=== PATIENT | male | born 2000 | race Caucasian/White ===

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

== ENCOUNTER 2021-01-22 07:37 | Emergency (ER) | payer BC, SELFPAY ==
[2021-01-22 07:38] VITALS: BP 186/100; PULSE 100; RESP 16; TEMP 36; O2SAT 98; BMI 26.4
--- NOTE | 2021-01-22 08:02 | RAD_ITS ---
STUDY: X-RAY - ACUTE ABDOMINAL SERIES REASON FOR EXAM: Male, 20 years old. Pain TECHNIQUE: Single view of the chest. Supine, and erect view(s) of the abdomen were obtained. 5 total views obtained COMPARISON: None. FINDINGS: The lungs are clear and expanded. Normal size heart. Normal mediastinum and ludwin. Normal visualized pulmonary arteries. Normal visualized aortic arch and descending thoracic aorta. There is a non-specific bowel gas pattern. The soft tissue structures of the abdomen and pelvis are unremarkable. Normal visualized osseous structures. RAD/Acute Abdomen Inc Chest IMPRESSION: Normal x-ray examination of the chest, abdomen, and pelvis. Electronically Signed: Marcial Dobbs MD at 9:08 EST , Service support ,
--- NOTE | 2021-01-22 08:03 | ED.VIS.GI ---
HPI HPI - GI History of Present Illness Chief Complaint: Nausea/Vomiting Abdominal Pain/Flank Pain Onset: Today and Hours (6) Context: Gradual Onset Timing: Continuous Quality: Sharp Location: Diffuse Worsened by: Nothing Relieved by: Nothing Nausea/Vomiting/Emesis GI Symptom: Positive for Nausea and Vomiting Onset: Today Quality: Positive for - (Dark blood) Diarrhea/Melena/Hematochezia GI Symptom: Negative for Diarrhea, Melena and Hematochezia Associated Symptoms Associated Symptoms: Negative for Dysuria, Frequency and Hematuria Narrative Narrative: Patient presents with abdominal pain, nausea, and vomiting that began today. Patient states he was drinking alcohol last night. Patient states he has been vomiting for the past 6 hours. Patient states initially it was bile but then it changed to dark blood. Patient admits to some diffuse abdominal pain. Patient describes it as a sharp. Patient states nothing makes it better nothing makes it worse. Patient denies any diarrhea, melena, or hematochezia. Patient denies any dysuria, frequency, or hematuria. PFSH PFSH Medical History no medical history no medical history Home Medications ondansetron 4 mg PO Q8H PRN PRN #10 tab 01/22/21 [Rx Last Taken Unknown] Allergy/AdvReac Type Severity Reaction Status Date / Time No Known Allergies Allergy Verified 01/22/21 07:39 Surgical History no surgical history no surgical history Social History Smoking Status: Former smoker ROS ROS ED Constitutional Constitutional ED: Reports chills and subjective; Denies fever(s) Eyes Eyes: Denies blurry vision or change in vision ENT ENT ED: Denies rhinorrhea or sore throat Cardiovascular Cardiovascular: Denies chest pain or palpitations Respiratory/Chest Respiratory/Chest: Denies cough or dyspnea Gastrointestinal Gastrointestinal: Reports abdominal pain, nausea and vomiting; Denies diarrhea or melena Genitourinary Genitourinary ED: Denies dysuria, hematuria or urinary frequency Musculoskeletal Musculoskeletal: Denies back pain or neck pain Integumentary Denies abscess or rash Neurologic Neurologic: Denies headache(s) or weakness Allergic/Immunologic Allergic/Immunologic ED: Denies mouth swelling or urticaria EXAM Physical Exam Const Vital Signs: 01/22/21 07:38 Temperature 96.8 F L Temperature Source Temporal Pulse Rate 100 Respiratory Rate 16 Blood Pressure 186/100 H Blood Pressure Mean 128 Pulse Ox 98 Oxygen Delivery Method Room Air Positive well nourished and well developed General Appearance ED: well developed HEENT Reports moist mucous membranes Neck supple and no JVD Resp normal respiratory effort and clear to auscultation bilaterally Cardio regular rate, regular rhythm and no murmurs GI normal to inspection, nondistended, normoactive bowel sounds, non-tender and non-distended Auscultation: normoactive bowel sounds Palpation: soft Extremity normal to inspection General Extremety ED: Negative for edema or tenderness General Extremity: Negative for edema Neuro oriented x3, CN's II-XII intact bilaterally and no sensory deficits noted Sensorium / Orientation: alert Motor Exam: strength 5/5 throughout Psych mental status grossly normal Skin no rashes or lesions noted MDM MDM MDM Narrative Medical decision making narrative: Patient was given IV fluids and Zofran. CBC and comprehensive metabolic profile were obtained and were essentially within normal limits. Lipase was normal. Acute abdominal x-rays were obtained. There are 5 views. On my interpretation, there is no acute process. There is no free intraperitoneal air. There is no evidence of bowel obstruction. There is no air in the mediastinum. Radiologist also interpreted the x-rays and agrees. Patient was feeling somewhat better on reevaluation. Patient was given a prescription for Zofran. Patient was instructed to start with a liquid diet and advance as tolerated. Patient was instructed to follow-up with his primary care physician in 3 to 5 days. Patient was instructed to return if worse in any way. Patient understood and was agreeable with the plan. All questions were answered. Lab Data Attestation: I reviewed the patient's lab results. Labs: Laboratory Results - last 24 hr 01/22/21 01/22/21 08:20 08:20 WBC 8.7 RBC 5.54 Hgb 15.5 Hct 43.8 MCV 79.1 L MCH 28.0 MCHC 35.4 RDW Std Deviation 35.7 RDW Coeff of Nasir 12.6 Plt Count 249 MPV 10.0 Immature Gran % (Auto) 0.200 Neut % (Auto) 77.3 H Lymph % (Auto) 15.7 L [place] % (Auto) 5.9 Eos % (Auto) 0.3 Baso % (Auto) 0.6 Absolute Neuts (auto) 6.8 Absolute Lymphs (auto) 1.37 Nucleated RBC % 0 Sodium 141 Potassium 3.9 Chloride 108 H Carbon Dioxide 23.0 Anion Gap 10 BUN 8 Creatinine 1.00 Estim Creat Clear Calc 130.95 Est GFR (MDRD) Af Amer 120 Est GFR (MDRD) Non-Af 99 BUN/Creatinine Ratio 8.0 L Glucose 105 Calcium 10.3 H Total Bilirubin 2.20 H AST 22 ALT 27 Alkaline Phosphatase 71 Total Protein 8.8 H Albumin 5.2 H Globulin 3.6 Albumin/Globulin Ratio 1.4 Lipase 72 L Radiography Diagnostic Testing: Clinical Impression(s) from Imaging Studies Acute Abdomen Series 01/22/21 08:02 IMPRESSION: Normal x-ray examination of the chest, abdomen, and pelvis. Electronically Signed: Marcial Dobbs MD at 9:08 EST , Service support , Discharge Plan Triage Chief Complaint: Nausea/Vomiting ED Provider: Logan Shepard Dx/Rx/DC Orders Clinical Impression: Nausea and vomiting Instructions: ED Vomiting (Adult) Prescriptions: New ondansetron [ondansetron] 4 MG tablet 4 mg PO Q8H PRN PRN (Reason: Nausea) Qty: 10 RF: 0 Primary Care Provider: Care Physician,No Primary Referrals: Arise Quintanilla MD [STAFF PHYSICIAN] - 3-5 Days Care Physician,No Primary [Primary Care Provider] - Disposition Disposition: Home, Self Care
[2021-01-22] MEDS: 0.9% Normal Saline 1,000 ML 1000 ML IV (08:20)
[2021-01-22] MEDS: Ondansetron 4 MG/2 ML Vial IV (08:20)
[2021-01-22 08:38] LABS: Absolute Lymphocyte Count 1.37 X10^3/uL (0.83-4.51); Absolute Neutrophil Count 6.8 X10^3/uL (2.0-7.7); Basophil# 0.05 X10^3/uL; Basophil% 0.6 % (0-1); Eosinophil# 0.03 X10^3/uL; Eosinophils% 0.3 % (0-5); Hematocrit 43.8 % (40-54); Hemoglobin 15.5 g/dL (13.0-16.5); Lymphocyte # 1.37 X10^3/ul (0.83-4.51); Lymphocyte % 15.7 % (19-41); Mean Corp Hgb Conc 35.4 g/dL (32-36); Mean Corpuscular Volume 79.1 fL (80-94); Monocyte# 0.52 X10^3/uL; Monocyte% 5.9 % (0-10); NRBC Flagged by Analyzer 0 % (0-5); Neutrophil # 6.75 X10^3/uL (2.7-7.7); Neutrophil % 77.3 % (47-70); Platelet Count 249 K/mm3 (150-450); RBC Distribution Width CV 12.6 % (11.6-14.6); RBC Distribution Width SD 35.7 fl (35.1-43.9); Red Blood Count 5.54 M/mm3 (4.6-6.2); White Blood Count 8.7 K/mm3 (4.4-11.0)
[2021-01-22 08:49] LABS: ALB/GLOB Ratio 1.4 RATIO (0.9-2.4); AST(SGOT) 22 U/L (15-37); Alanine Aminotransfer ALT/SGPT 27 U/L (16-61); Albumin, Serum 5.2 g/dL (3.2-5.0); Alkaline Phosphatase 71 U/L (45-117); Anion Gap 10 (5-15); BUN 8 mg/dL (7-18); Calcium,Total 10.3 mg/dL (8.5-10.1); Chloride 108 mmol/L (98-107); EST Glomerular Filtration Rate 99 mL/min (>60); Est Glom Filt Rate - Afr Amer 120 mL/min (>60); Estimated Creatinine Clearance 130.95 ml/min; Globulin 3.6 g/dL (2.2-4.2); Glucose 105 mg/dL (74-106); Lipase 72 U/L (73-393); Potassium 3.9 mmol/L (3.5-5.1); Protein, Total 8.8 g/dL (6.4-8.2); Sodium Level 141 mmol/L (136-145)
[2021-01-22 09:56] VITALS: BP 118/60; PULSE 82; RESP 16; O2SAT 100
== END 2021-01-22 09:57 | disposition home or self-care (01) ==
PROVIDERS: Emergency Provider Emergency Medicine
DX: R11.2 Nausea with vomiting, unspecified (principal); Z87.891 Personal history of nicotine dependence
CPT/HCPCS: 74022; 80053; 83690; 85025; 96361; 96374; 99283; J7030; A4216; J2405